=== PATIENT | male | born 1995 | race Caucasian/White ===

== ENCOUNTER 2017-09-30 00:17 | Emergency (ER) | payer BC ==
[~2017-09-30] VITALS: Ht 179.1 cm; Wt 86.4 kg
[2017-09-30 00:22] VITALS: TEMP 36.6; Ht 179.1 cm; Wt 86.4 kg
[2017-09-30] MEDS ORDERED: XYLOCAINE 1%/SOD BICARB 20 ML VIAL INFIL ONE (00:45)
[2017-09-30 02:02] VITALS: BP 130/74; PULSE 75; O2SAT 100
--- NOTE | 2017-10-01 01:35 | EMERGENCY ROOM VISIT NOTE ---
ED Visit Note First contact with patient: 00:33 CHIEF COMPLAINT: Eyebrow laceration HISTORY OF PRESENT ILLNESS: This 21-year-old male patient presents to the emergency department after cutting the left eyebrow after being struck by a hockey stick about 30 minutes ago. The bleeding has not stopped. Denies weakness or numbness of the face and jaw. No visual changes or pain of the eye itself. The patient rates the pain as dull and 2/10. The patient denies any other injuries. The patient's Tetanus shot is reportedly up to date. REVIEW OF SYSTEMS: A 6 system review of systems was completed with positives and pertinent negatives listed in the HPI. ALLERGIES: NKDA MEDICATIONS: No chronic medication PMH: Otherwise healthy SOCIAL HISTORY: Student who lives locally PHYSICAL EXAM: Vital Signs: Reviewed Nurse's notes, vital signs stable. GENERAL : White male, in no acute distress, well-developed, well-nourished. SKIN: There is a 1.5 cm X shaped laceration on the lateral aspect of the left eyebrow. The edges gape apart with traction. There is no foreign material in the wound and it looks clean. There is mild bleeding. No deep structures such as tendons, bones, or significant blood vessels are seen in the base of the wound. Normal strength and movement of the face. Capillary refill less than 2 seconds. Normal sensation to light and sharp touch. EMERGENCY DEPARTMENT COURSE: I examined the patient. Verbal consent was obtained to perform the procedure. Using sterile technique the wound was cleansed with Betadine. The area was sterilely draped. 2 ml of 1% buffered lidocaine was used to anesthetize the laceration on the left eyebrow. Once the patient was anesthetized, the wound was copiously irrigated under pressure with sterile saline. The wound was explored and was as described above. The laceration was repaired using 4 simple interrupted 5-0 nylon sutures with the wound edges being well approximated. The patient tolerated the procedure well. Hemostasis was achieved. The area was cleaned with sterile saline and dressed with bacitracin ointment and bandage. The patient was discharged home in good condition. Current/Historical Medications No Active Prescriptions or Reported Meds Allergies Coded Allergies: Benzoyl Peroxide (Verified Allergy, Unknown, swelling, 09/30/17) Vital Signs Date Time Temp Pulse Resp B/P (MAP) Pulse Ox O2 Delivery O2 Flow Rate FiO2 09/30/17 02:02 75 16 130/74 100 09/30/17 00:22 36.6 80 16 136/72 100 Room Air Departure Information Impression Primary Impression: Laceration of eyebrow Dispostion Home / Self-Care Condition GOOD Prescriptions No Active Prescriptions or Reported Meds Forms HOME CARE DOCUMENTATION FORM, IMPORTANT VISIT INFORMATION Patient Instructions My [facility], ED Laceration All, ED Scar Tips to Minimize Additional Instructions Keep wound clean and dry. Do not allow any crusting or dried blood to accumulate on sutures. If this occurs, use a mild soap/water on a Q-tip to clean the wound. Do not use Peroxide to clean the wound as this can delay healing Use an antibiotic ointment like Bacitracin for 3-4 days, then let wound dry. You may bathe and shower as normal, but DO NOT SOAK the wound. Suture removal in about 5-7 days with your Family Doctor or in the ER. Return sooner for any signs of infection, increasing redness, swelling, or drainage.
== END 2017-09-30 02:03 | disposition home or self-care (01) ==
LOC: C.EDB 00:18 → C.EDA 02:03
DX: S01.81XA Laceration without foreign body of other part of head, initial encounter (principal); W21.210A Struck by ice hockey stick, initial encounter; Y92.39 Other specified sports and athletic area as the place of occurrence of the external cause